=== PATIENT | male | born 1945 | race Caucasian/White ===

== ENCOUNTER 2020-03-09 14:12 | Emergency (ER) | payer MEDICARE ==
[~2020-03-09] VITALS: Ht 193 cm; Wt 106.8 kg
[2020-03-09 14:33] VITALS: Ht 193 cm; Wt 106.8 kg
[2020-03-09] MEDS ORDERED: BAYER CHEWABLE81 MG PO (14:35)
[2020-03-09] MEDS ORDERED: NORVASC10 MG PO (14:35)
[2020-03-09] MEDS ORDERED: ZYLOPRIM300 MG PO (14:35)
[2020-03-09] MEDS ORDERED: MYSOLINE 50 MG50 MG PO ×2 (14:36→14:37)
[2020-03-09] MEDS ORDERED: PROSCAR5 MG PO (14:36)
[2020-03-09] MEDS ORDERED: TOPROL XL25 MG PO (14:36)
[2020-03-09] MEDS ORDERED: KEFLEX500 MG PO (14:36)
[2020-03-09] MEDS ORDERED: LISINOPRIL40 MG PO (14:36)
[2020-03-09] MEDS ORDERED: FLOMAX0.4 MG PO (14:37)
[2020-03-09 15:47] LABS: BASOPHILS 0.2 % (0-2); EOSINOPHILS 1.1 % (0-7); HEMATOCRIT 45.7 % (42.0-54.0); HEMOGLOBIN 15.9 g/dL (13.5-17.5); IMMATURE GRANULOCYTES 0.4 % (0-5); LYMPHOCYTES 13.3 % (15-50); MCH 29.3 pg (26.0-34.0); MCHC 34.8 g/dL (31.0-37.0); MCV 84.2 fL (80.0-100.0); MEAN PLATELET VOLUME 10.1 fL (7.4-10.4); MONOCYTES 8.3 % (2-11); NEUTROPHILS 76.7 % (40-80); PLATELET COUNT 193 10x3/uL (130-400); RBC 5.43 10x6/uL (4.20-6.10); RDW 13.1 % (11.5-14.5); WBC 10.4 10x3/uL (4.8-10.8)
[2020-03-09 15:51] LABS: GLUCOSE NEGATIVE (NEGATIVE); KETONE NEGATIVE (NEGATIVE); NITRITE NEGATIVE (NEGATIVE); UROBILINOGEN NORMAL (NORMAL)
[2020-03-09 15:52] LABS: BILIRUBIN NEGATIVE (NEGATIVE)
[2020-03-09 16:11] LABS: ANION GAP 13.6 mmol/L (8-16); CALCIUM 8.6 mg/dL (8.5-10.1); CARBON DIOXIDE 24.2 mmol/L (21.0-32.0); POTASSIUM - SERUM 3.8 mmol/L (3.5-5.1)
[2020-03-09 16:14] LABS: ALBUMIN 2.9 g/dL (3.4-5.0); BILIRUBIN - TOTAL 0.66 mg/dL (0.2-1.3); PROTEIN - SERUM 6.4 g/dL (6.4-8.2)
[2020-03-09 18:52] VITALS: BP 158/86
== END 2020-03-09 18:52 | disposition home or self-care (01) ==
LOC: D.ER 14:12
PROVIDERS: Family Medicine
DX: R33.9 Retention of urine, unspecified (principal); N17.9 Acute kidney failure, unspecified; I10 Essential (primary) hypertension

== ENCOUNTER 2020-04-08 00:20 | Emergency (ER) | payer MEDICARE ==
[~2020-04-08] VITALS: Ht 193 cm; Wt 111.1 kg
[~2020-04-08 00:20] MED LIST: BAYER CHEWABLE81 MG PO; FLOMAX0.4 MG PO; KEFLEX500 MG PO; LISINOPRIL40 MG PO; MYSOLINE 50 MG50 MG PO; NORVASC10 MG PO; PROSCAR5 MG PO; TOPROL XL25 MG PO; ZYLOPRIM300 MG PO
[2020-04-08 00:29] VITALS: Ht 193 cm; Wt 111.1 kg
[2020-04-08 00:53] LABS: NITRITE NEGATIVE (NEGATIVE)
[2020-04-08 00:54] LABS: BILIRUBIN NEGATIVE (NEGATIVE); KETONE NEGATIVE (NEGATIVE); UROBILINOGEN NORMAL mg/dL (< 2)
[2020-04-08 00:55] LABS: BACTERIA FEW /HPF (NONE SEEN); EPITHELIAL CELLS 0-5 /hpf (0-5)
[2020-04-08 03:31] VITALS: BP 147/79
== END 2020-04-08 01:23 | disposition home or self-care (01) ==
LOC: D.ER 00:20
PROVIDERS: Family Medicine
DX: T83.091A Other mechanical complication of indwelling urethral catheter, initial encounter (principal); I10 Essential (primary) hypertension

== ENCOUNTER 2020-04-18 14:17 | Emergency (ER) | payer MEDICARE ==
[~2020-04-18] VITALS: Ht 193 cm; Wt 104.5 kg
[2020-04-18 14:48] VITALS: BP 150/85; Ht 193 cm; Wt 104.5 kg
[2020-04-18] MEDS ORDERED: CHRONULAC30 ML PO (22:09)
[2020-04-18] MEDS ORDERED: KEFLEX500 MG PO (23:23)
== END 2020-04-18 16:15 | disposition home or self-care (01) ==
LOC: D.ER 14:17
DX: T83.098A Other mechanical complication of other urinary catheter, initial encounter (principal); E11.9 Type 2 diabetes mellitus without complications; I10 Essential (primary) hypertension

== ENCOUNTER 2020-04-18 19:06 | Emergency (ER) | payer MEDICARE ==
[~2020-04-18] VITALS: Ht 193 cm; Wt 104.5 kg
[2020-04-18 19:16] VITALS: Ht 193 cm; Wt 104.5 kg
[2020-04-18 21:38] LABS: BASOPHILS 0.2 % (0-2); EOSINOPHILS 2.1 % (0-7); HEMATOCRIT 45.6 % (42.0-54.0); HEMOGLOBIN 15.8 g/dL (13.5-17.5); IMMATURE GRANULOCYTES 0.3 % (0-5); LYMPHOCYTES 16.6 % (15-50); MCHC 34.6 g/dL (31.0-37.0); MCV 83.7 fL (80.0-100.0); MEAN PLATELET VOLUME 10.4 fL (7.4-10.4); MONOCYTES 6.1 % (2-11); NEUTROPHILS 74.7 % (40-80); RBC 5.45 10x6/uL (4.20-6.10); RDW 13.8 % (11.5-14.5); WBC 8.9 10x3/uL (4.8-10.8)
[2020-04-18 21:41] LABS: CALC OSMOLALITY 282 mosm/kg (275-300); CARBON DIOXIDE 26.1 mmol/L (21.0-32.0); CHLORIDE - SERUM 107 mmol/L (98-107); CREATININE - SERUM 0.9 mg/dL (0.6-1.3); GLUCOSE 134 mg/dL (74-106); POTASSIUM - SERUM 3.3 mmol/L (3.5-5.1); SODIUM 140 mmol/L (136-145); UREA NITROGEN 17 mg/dL (7-18); eGFR NON AFRICAN AMERICAN 88 mL/min (90-120)
[2020-04-18 21:48] LABS: ALBUMIN 3.7 g/dL (3.4-5.0); ALKALINE PHOSPHATASE 68 U/L (30-120); ALT (SGPT) 23 U/L (10-68); BILIRUBIN - TOTAL 0.42 mg/dL (0.2-1.3); PROTEIN - SERUM 6.6 g/dL (6.4-8.2)
[2020-04-18] MEDS ORDERED: CHRONULAC30 ML PO (22:09)
[2020-04-18 22:13] LABS: PLATELET COUNT 144 10x3/uL (130-400)
[2020-04-18 23:18] LABS: BILIRUBIN NEGATIVE (NEGATIVE); KETONE NEGATIVE (NEGATIVE); NITRITE NEGATIVE (NEGATIVE); UROBILINOGEN NORMAL mg/dL (< 2)
[2020-04-18 23:22] LABS: BACTERIA NONE SEEN HPF (NONE SEEN); EPITHELIAL CELLS 0-5 /hpf (0-5); WHITE CELLS - URINE 0-5 HPF (0-1)
[2020-04-18] MEDS ORDERED: KEFLEX500 MG PO (23:23)
[2020-04-19 00:09] VITALS: BP 158/77
[2020-04-20] MEDS ORDERED: HYDROCODON-ACE1 EA10 PO (21:50)
== END 2020-04-19 00:55 | disposition home or self-care (01) ==
LOC: D.ER 19:06
PROVIDERS: Family Medicine
DX: T83.9XXA Unspecified complication of genitourinary prosthetic device, implant and graft, initial encounter (principal); K59.00 Constipation, unspecified; R94.4 Abnormal results of kidney function studies; E11.65 Type 2 diabetes mellitus with hyperglycemia; E87.6 Hypokalemia; N39.0 Urinary tract infection, site not specified; R31.9 Hematuria, unspecified

== ENCOUNTER 2020-04-20 21:36 | Emergency (ER) | payer MEDICARE ==
[~2020-04-20] VITALS: Ht 193 cm; Wt 104.5 kg
[~2020-04-20 21:36] MED LIST changes: +CHRONULAC30 ML PO
[2020-04-20 21:43] VITALS: BP 132/99; Ht 193 cm; Wt 104.5 kg
[2020-04-20] MEDS ORDERED: HYDROCODON-ACE1 EA10 PO (21:50)
== END 2020-04-20 21:55 | disposition home or self-care (01) ==
LOC: D.ER 21:36
DX: N32.89 Other specified disorders of bladder (principal); T83.84XA Pain due to genitourinary prosthetic devices, implants and grafts, initial encounter; I10 Essential (primary) hypertension; E11.9 Type 2 diabetes mellitus without complications

== ENCOUNTER 2020-04-22 08:22 | Emergency (ER) | payer MEDICARE ==
[~2020-04-22] VITALS: Ht 193 cm; Wt 104.5 kg
[~2020-04-22 08:22] MED LIST changes: +HYDROCODON-ACE1 EA10 PO
[2020-04-22 08:51] VITALS: Ht 193 cm; Wt 104.5 kg
[2020-04-22 10:45] LABS: BILIRUBIN NEGATIVE (NEGATIVE); KETONE NEGATIVE (NEGATIVE); NITRITE NEGATIVE (NEGATIVE); UROBILINOGEN NORMAL mg/dL (< 2); WHITE CELLS - URINE 0-5 HPF (0-1)
[2020-04-22 10:47] LABS: BACTERIA FEW HPF (NONE SEEN)
[2020-04-22 11:23] VITALS: BP 129/87
== END 2020-04-22 11:23 | disposition home or self-care (01) ==
LOC: D.ER
PROVIDERS: Family Medicine
DX: R31.9 Hematuria, unspecified (principal); K59.00 Constipation, unspecified; T83.098A Other mechanical complication of other urinary catheter, initial encounter